=== PATIENT | male | born 1975 | race Caucasian/White ===

== ENCOUNTER 2020-12-12 07:23 | Emergency (ER) | payer BC ==
[2020-12-12 08:02] VITALS: BP 148/90; PULSE 84; TEMP 97.9; BMI 28.3
[2020-12-12] MEDS ORDERED: KETOROLAC TROMETHAMINE 30 MG/1 ML VIAL IM ONE (08:10)
[2020-12-12] MEDS ORDERED: LIDOCAINE 5% TOPICAL PATCH TP ONE (08:11)
[2020-12-12] MEDS ORDERED: LIDOCAINE 5% TOPICAL PATCH ONE (08:16)
[2020-12-12] MEDS ORDERED: KETOROLAC TROMETHAMINE 30 MG/1 ML VIAL ONE (08:16)
[2020-12-12] MEDS ORDERED: LIDOCAINE PATCH REMOVAL MC ONE (22:00)
== END 2020-12-12 09:38 | disposition home or self-care (01) ==
LOC: JER 07:23
PROC: 3E0233Z Introduction of Anti-inflammatory into Muscle, Percutaneous Approach (ICD-10-PCS; principal; 2020-12-12)
DX: M54.6 Pain in thoracic spine (principal)
CPT/HCPCS: 99284-25